=== PATIENT | male | born 1980 | race Caucasian/White ===

== ENCOUNTER 2023-08-16 09:42 | Outpatient (OUT) | payer OTHER, SELFPAY ==
[2023-08-16 10:42] LABS: Basophils Percent Auto 0.3 % (0.2-2.0); Eosinophils Absolute Auto 0.2 10^3/uL (0.0-0.7); Eosinophils Percent Auto 2.1 % (0.9-7.0); Hematocrit 47.8 % (42.0-54.0); Hemoglobin 16.2 g/dL (14.0-18.0); Immature Granulocytes Abs Auto 0.02 10^3/uL (0.00-0.03); Immature Granulocytes Pct Auto 0.2 % (0.0-0.5); Lymphocytes Absolute Auto 2.4 10^3/uL (1.2-3.8); Lymphocytes Percent Auto 26.6 % (20.5-60.0); Mean Corpuscular HGB Conc 33.9 g/dL (29.9-35.2); Mean Corpuscular Hemoglobin 31.2 pg (25.9-34.0); Mean Corpuscular Volume 92.1 fL (80.0-94.0); Mean Platelet Volume 9.8 fL (9.5-13.5); Monocytes Absolute Auto 0.8 10^3/uL (0.3-0.8); Monocytes Percent Auto 9.2 % (1.7-12.0); Neutrophils Absolute Auto 5.4 10^3/uL (1.4-6.5); Neutrophils Percent Auto 61.6 % (43.0-75.0); Platelet Count 199 10^3/uL (150-450); Red Blood Count 5.19 10^6/uL (4.70-6.10); Red Cell Distribution Width 12.2 % (11.0-15.0); White Blood Count 8.8 10^3/uL (4.0-11.0)
[2023-08-16 12:15] LABS: Alanine Aminotransferase 111 U/L (16-63); Albumin Level 3.8 g/dL (3.4-5.0); Alkaline Phosphatase 64 U/L (46-116); Anion Gap 12.3; Aspartate Amino Transferase 44 U/L (15-37); BUN Creatinine Ratio 12.4; Bilirubin Total 0.5 mg/dL (0.2-1.0); Carbon Dioxide 27.6 mmol/L (21.0-32.0); Chloride 103 mmol/L (98-107); Chol HDL Ratio 3.6; Cholesterol 122 mg/dL (<=200); Estimated GFR (African America >60 (>=60); Estimated GFR (Non-African Ame >60 (>=60); Free T3 2.98 pg/mL (2.18-3.98); Globulin 3.7 g/dL; Glucose 105 mg/dL (74-106); HDL Cholesterol 34 mg/dL (40-60); Potassium 3.9 mmol/L (3.5-5.1); Sodium 139 mmol/L (136-145); Thyroid Stimulating Hormone 2.691 uIU/mL (0.358-3.740); Total Protein 7.5 g/dL (6.4-8.2); Triglycerides 108 mg/dL (<=150); VLDL CHOLESTEROL 21.6 mg/dL
[2023-08-16 12:20] LABS: Prostate Specific Antigen Scrn 0.24 ng/mL (<=4.00)
[2023-08-16 13:32] LABS: Estimated Average Glucose 108 mg/dL; Glycohemoglobin A1C 5.4 % (4.5-6.2)
[2023-08-17 04:07] LABS: Testosterone 366 ng/dL (264-916)
[2023-08-17 09:09] LABS: Insulin 14.3 uIU/mL (2.6-24.9)
== END 2023-08-16 09:43 | disposition home or self-care (01) ==
LOC: LAB 09:43
PROVIDERS: PCP Family Medicine; Visit Provider Family Medicine
DX: M79.7 Fibromyalgia (principal); G47.00 Insomnia, unspecified
CPT/HCPCS: 36415; 80053; 80061; 83036; 83525; 84403; 84436; 84443; 84481; 85025; G0103